=== PATIENT | male | born 1950 | race Caucasian/White ===

== ENCOUNTER → 2017-07-13 | Outpatient (CLI) | payer OTHER | LOC: CIMAGING 15:06 | PROVIDERS: ATTEND Family Medicine | DX: I80.02 Phlebitis and thrombophlebitis of superficial vessels of left lower extremity (principal); I83.92 Asymptomatic varicose veins of left lower extremity | CPT/HCPCS: 93971-PO ==

== ENCOUNTER 2018-02-09 15:21 | Emergency (ER) | payer OTHER ==
--- NOTE | 2018-02-09 16:28 | EDPHY ---
H & P Time Seen by Provider: 02/09/18 15:48 HPI/ROS: This patient complains of inability to pass urine over the past 2 days with increasing suprapubic pain. He saw his family practitioner earlier today who was concerned about a potential ureteral stone. A CT abdomen pelvis ruled out ureteral lithiasis but revealed the presence of prostatic hypertrophy and obstructive uropathy. Patient called [facility] and secured appointment for tomorrow but was instructed to come the emergency department for catheter placement. He reports the Jones suprapubic region is moderate to severe with no clear exacerbating factors. He reports that prior to the obstruction he gradually increasing difficulty passing urine and associated mild dysuria. He has a prescription for ciprofloxacin 500 twice daily and Flomax from his primary care physician. He has fill the script was not started taking them yet. ROS: Constitutional: No fevers or chills. HEENT: No complaints Pulmonary: No complaints Cardiovascular: No lightheadedness or other complaints GI: Positive nausea vomiting earlier that he attributes to pain. Nausea has resolved post catheter placement : No testicular pain or swelling. He denies any significant flank pain 10 point review of symptoms is performed and otherwise negative with exception of pertinent positives and negatives listed in HPI and ROS Social History: Monogamous with his Smoking Status: Former smoker Physical Exam: General Appearance: Alert, no distress. Eyes: Pupils equal and round no pallor or injection. ENT, Mouth: Mucous membranes moist. Respiratory: There are no retractions, lungs are clear to auscultation. Cardiovascular: Regular rate and rhythm. Gastrointestinal: Positive suprapubic tenderness initially. No guarding or rebound : No testicular swelling or tenderness. Circumcised penis with no lesions or tenderness. No urethral discharge Neurological: GCS 15 Skin: Warm and dry, no rashes. Musculoskeletal: Neck is supple nontender. Extremities are symmetrical, full range of motion. Psychiatric: Mood and affect are normal DIFFERENTIAL DIAGNOSIS: After history and physical exam differential diagnosis was considered for prostatitis with obstructive uropathy, benign prostatic hypertrophy, prostatic cancer Constitutional: Initial Vital Signs Heart Rate 80 02/09/18 15:32 Respiratory Rate 20 02/09/18 15:32 Blood Pressure 140/95 H 02/09/18 15:32 O2 Delivery Mode Room Air Allergies/Adverse Reactions: No Known Allergies Allergy (Verified 02/09/18 15:35) Home Medications: Medication Instructions Recorded Ciprofloxacin [Cipro] 500 mg PO BID #14 tab 02/09/18 Rosuvastatin Calcium 02/09/18 MDM/Departure - MDM Medications Given: Discontinued Medications Ciprofloxacin (Cipro) 500 mg PO EDNOW ONE PRN Reason: Protocol Stop: 02/09/18 16:45 Last Admin: 02/09/18 17:00 Dose: Not Given ED Course/Re-evaluation: Wall catheter was placed by our nurse with over a 1000 mL of urine out. Patient ultimately put out approximately 1600 but was clamped after the 1st L for period of time. Patient felt significant relief of the pain and pressure. He review of the patient's POC urine dip is positive for leukocytes. Discussion: Patient's findings consistent with obstructive uropathy attributable to acute prostatitis. The prescription has from his primary care physician is for 1 week of ciprofloxacin. Explain I think that he will require a longer duration of treatment-at least 2 weeks provided an additional week's worth of Cipro 500 twice daily. Patient will start the antibiotic tonight. He declined an offer for antibiotic here in the emergency department. He is instructed in home Wall catheter care will follow up with [facility] tomorrow. No evidence of sepsis or other complicating factors here today. He understands need to return emergency department should develop any significant worsening symptoms despite treatment plan of Cipro, Flomax, Wall cath - Depart Disposition: Home, Routine, Self-Care Clinical Impression: Lower urinary tract obstruction, Acute prostatitis Condition: Good Instructions: Prostatitis (ED), Wall Catheter Placement and Care (ED) Additional Instructions: Diagnosis: Acute prostatitis 2. Lower urinary obstruction Plan: Keep Wall catheter in place Cipro antibiotic for 2 weeks Flomax as prescribed Ibuprofen Tylenol for discomfort if needed Follow up with Urology Return emergency department for any worsening despite treatment plan Prescriptions: Ciprofloxacin [Cipro] 500 mg PO BID #14 tab Referrals: Stephane Bermudez DO [Primary Care Provider] - As per Instructions
[2018-02-09] MEDS ORDERED: CIPROFLOXACIN 500 MG TAB PO ONE (16:44)
[2018-02-09 17:27] VITALS: BP 119/70
== END 2018-02-09 17:25 | disposition home or self-care (01) ==
LOC: CED 15:21
PROC: 0T9B70Z Drainage of Bladder with Drainage Device, Via Natural or Artificial Opening (ICD-10-PCS; principal; 2018-02-09)
DX: N13.9 Obstructive and reflux uropathy, unspecified (principal); N41.0 Acute prostatitis; Z87.891 Personal history of nicotine dependence

== ENCOUNTER → 2018-02-09 | Outpatient (CLI) | payer OTHER | LOC: CIMAGING 10:49 | PROVIDERS: ATTEND Family Medicine | DX: R31.9 Hematuria, unspecified (principal); N13.30 Unspecified hydronephrosis; N32.89 Other specified disorders of bladder; N40.1 Benign prostatic hyperplasia with lower urinary tract symptoms | CPT/HCPCS: 74176-PO ==